=== PATIENT | female | born 1985 | race Two or more races ===

== ENCOUNTER 2019-12-31 12:42 | Inpatient (IN) | payer OTHER ==
[~2019-12-31] VITALS: Ht 157.5 cm; Wt 64.4 kg
[2020-01-19] MEDS ORDERED: HIERRO PO (21:29)
[2020-01-19] MEDS ORDERED: PRENATAL TABLE1 EAC1 PO (21:29)
[2020-01-19] MEDS ORDERED: PREVACID PO (21:30)
[2020-01-21] MEDS ORDERED: INTEGRA F CAPS1 EACH (16:26)
[2020-01-21] MEDS ORDERED: LANSOPRAZOLE30 MG (16:27)
[2020-01-21] MEDS ORDERED: IRON240 MG PO (16:27)
== END 2020-01-23 14:40 | disposition home or self-care (01) | DRG 788 ==
LOC: LDR 01-19 19:47 → SURG-SUITE 01-19 19:47 → LDR 01-31 12:45
PROVIDERS: ADMIT Obstetrics & Gynecology Maternal & Fetal Medicine; ATTEND Obstetrics & Gynecology Maternal & Fetal Medicine
PROC: 4A0HXFZ Measurement of Products of Conception, Cardiac Rhythm, External Approach (ICD-10-PCS; 2020-01-19)
PROC: 10D00Z1 Extraction of Products of Conception, Low, Open Approach (ICD-10-PCS; principal; 2020-01-20 14:45)
DX: O62.0 Primary inadequate contractions (principal); O65.4 Obstructed labor due to fetopelvic disproportion, unspecified; Z3A.38 38 weeks gestation of pregnancy; Z37.0 Single live birth; Z20.828 Contact with and (suspected) exposure to other viral communicable diseases

== ENCOUNTER → 2020-01-14 | Outpatient (CLI) | payer OTHER ==
[~2020-01-14] MED LIST: HIERRO PO; INTEGRA F CAPS1 EACH; IRON240 MG PO; LANSOPRAZOLE30 MG; PRENATAL TABLE1 EAC1 PO; PREVACID PO
== END | disposition home or self-care (01) ==
LOC: NST 16:04
PROVIDERS: ATTEND Obstetrics & Gynecology Maternal & Fetal Medicine
DX: Z34.83 Encounter for supervision of other normal pregnancy, third trimester (principal)